=== PATIENT | male | born 1995 | race Caucasian/White ===

== ENCOUNTER 2018-09-12 23:51 | Emergency (ER) | payer OTHER ==
--- NOTE | 2018-09-12 23:56 | ER Report ---
History and Physical Time Seen By MD: 23:54 HPI/ROS CHIEF COMPLAINT: Left upper quadrant abdominal pain, no vomiting HISTORY OF PRESENT ILLNESS: 22-year-old male presents to the ER complaining of intermittent left upper quadrant abdominal pain. Patient admits to eating at [employer] several days ago. Patient notes vomiting tonight. He's had no fever or chills. He notes no diarrhea or constipation. He's had no dysuria or hematuria. Patient has no previous surgeries to his abdomen. REVIEW OF SYSTEMS: Respiratory: No cough, no dyspnea. Cardiovascular: No chest pain, no palpitations. Gastrointestinal: As above Musculoskeletal: No back pain. Allergies: Coded Allergies: No Known Drug Allergies (Unverified , 09/13/18) Home Meds Active Scripts Hydrocodone Bit/Acetaminophen (HYDROCODON-ACETAMINOPHEN 5-325) 1 Each Tablet, 1 EACH PO Q4-6H PRN for PAIN, #10 TAKE ONE TABLET BY MOUTH EVERY 4-6 HOURS NEEDED FOR PAIN Prov:ADILENE NUNN DO 09/13/18 Ondansetron Hcl (ZOFRAN) 4 Mg Tablet, 4 MG PO Q6H PRN for NAUSEA/VOMITING, #10 Prov:ADILENE NUNN DO 09/13/18 Reported Medications Hydralazine Hcl (HYDRALAZINE HCL) 25 Mg Tablet, 25 MG PO QDAY, TAB 09/13/18 Trazodone Hcl (TRAZODONE HCL) 50 Mg Tablet, 25 MG PO QHS 09/13/18 Sertraline Hcl (ZOLOFT) 100 Mg Tablet, 1 TAB PO QDAY, TAB 09/13/18 Reviewed Nurses Notes: Yes Old Medical Records Reviewed: Yes Constitutional Vital Sign - Last 24 Hours 09/12/18 09/12/18 09/13/18 09/13/18 23:56 23:58 00:21 00:51 Temp 99.8 Pulse 99 102 90 Resp 15 B/P (MAP) 118/79 118/79 (92) Pulse Ox 92 89 Intake and Output 09/12/18 09/12/18 09/13/18 15:00 23:00 07:00 Intake Total 1000 ml Balance 1000 ml Physical Exam General Appearance: The patient is alert, has no immediate need for airway protection and no current signs of toxicity. Fever 99.8 HEENT: Pupils equal and round no injection. No ric redness or exudate, mucous. Membranes are moist Respiratory: Chest is non tender, lungs are clear to auscultation. Cardiac: regular rate and rhythm Gastrointestinal: Abdomen is soft. Mild left upper quadrant tenderness, no rebound or guarding, no masses, bowel sounds normal. Musculoskeletal: Neck: Neck is supple and non tender. Extremities have full range of motion and are non tender. Skin: No rashes or lesions. DIFFERENTIAL DIAGNOSIS: After history and physical exam differential diagnosis was considered for abdominal pain including but not limited to appendicitis, cholecystitis, gastritis, food poisoning, gastroenteritis, viral syndrome and urinary tract infection. Medical Decision Making Data Points Result Diagram: 09/13/18 0005 09/13/18 0005 Laboratory Hematology Test 09/13/18 00:00 09/13/18 00:05 Urine Color Yellow Urine Clarity Clear Urine pH 5.0 pH (4.8-9.5) Urine Specific Harper 1.027 Urine Protein Negative mg/dL (NEGATIVE) Urine Glucose (UA) Negative mg/dL (NEGATIVE) Urine Ketones Negative mg/dL (NEGATIVE) Urine Blood Negative (NEGATIVE) Urine Nitrite Negative (NEGATIVE) Urine Bilirubin Negative (NEGATIVE) Urine Urobilinogen 2.0 mg/dL (0.2-1.9) Urine Leukocyte Esterase Negative (NEGATIVE) Urine RBC <1 /HPF (0-2/HPF) Urine WBC 1 /HPF (0-5/HPF) Urine Squamous Epithelial Cells None /LPF (</=FEW) Urine Bacteria Few /HPF (NONE-FEW) Urine Mucus None /HPF (NONE-FEW) Red Blood Count 5.61 M/uL (4.00-5.60) Mean Corpuscular Volume 90.6 fL (80.0-96.0) Mean Corpuscular Hemoglobin 31.2 pg (26.0-33.0) Mean Corpuscular Hemoglobin Concent 34.4 g/dL (32.0-36.0) Red Cell Distribution Width 13.3 % (11.5-14.5) Mean Platelet Volume 10.2 fL (7.2-11.1) Neutrophils (%) (Auto) 87.1 % (39.4-72.5) Lymphocytes (%) (Auto) 5.1 % (17.6-49.6) Monocytes (%) (Auto) 6.8 % (4.1-12.4) Eosinophils (%) (Auto) 0.8 % (0.4-6.7) Basophils (%) (Auto) 0.2 % (0.3-1.4) Nucleated RBC Relative Count (auto) 0.1 /100WBC Neutrophils # (Auto) 11.0 K/uL (2.0-7.4) Lymphocytes # (Auto) 0.6 K/uL (1.3-3.6) Monocytes # (Auto) 0.9 K/uL (0.3-1.0) Eosinophils # (Auto) 0.1 K/uL (0.0-0.5) Basophils # (Auto) 0.0 K/uL (0.0-0.1) Nucleated RBC Absolute Count (auto) 0.01 K/uL Sodium Level 137 mmol/L (137-145) Potassium Level 3.8 mmol/L (3.5-5.0) Chloride Level 99 mmol/L (98-107) Carbon Dioxide Level 28 mmol/L (22-30) Blood Urea Nitrogen 21 mg/dl (9-21) Creatinine 1.10 mg/dl (0.66-1.25) Glomerular Filtration Rate Calc > 60.0 Random Glucose 93 mg/dl (75-110) Calcium Level 9.6 mg/dl (8.4-10.2) Total Bilirubin 0.7 mg/dl (0.2-1.3) Aspartate Amino Transf (AST/SGOT) 42 U/L (0-35) Alanine Aminotransferase (ALT/SGPT) 74 U/L (0-56) Alkaline Phosphatase 61 U/L (0-126) Total Protein 7.8 g/dl (6.3-8.2) Albumin 4.6 g/dl (3.5-5.0) Amylase Level 70 U/L (0-110) Lipase 63 U/L (23-300) Chemistry Test 09/13/18 00:00 09/13/18 00:05 Urine Color Yellow Urine Clarity Clear Urine pH 5.0 pH (4.8-9.5) Urine Specific Harper 1.027 Urine Protein Negative mg/dL (NEGATIVE) Urine Glucose (UA) Negative mg/dL (NEGATIVE) Urine Ketones Negative mg/dL (NEGATIVE) Urine Blood Negative (NEGATIVE) Urine Nitrite Negative (NEGATIVE) Urine Bilirubin Negative (NEGATIVE) Urine Urobilinogen 2.0 mg/dL (0.2-1.9) Urine Leukocyte Esterase Negative (NEGATIVE) Urine RBC <1 /HPF (0-2/HPF) Urine WBC 1 /HPF (0-5/HPF) Urine Squamous Epithelial Cells None /LPF (</=FEW) Urine Bacteria Few /HPF (NONE-FEW) Urine Mucus None /HPF (NONE-FEW) White Blood Count 12.6 k/uL (4.5-11.0) Red Blood Count 5.61 M/uL (4.00-5.60) Hemoglobin 17.5 g/dL (14.0-18.0) Hematocrit 50.8 % (42.0-52.0) Mean Corpuscular Volume 90.6 fL (80.0-96.0) Mean Corpuscular Hemoglobin 31.2 pg (26.0-33.0) Mean Corpuscular Hemoglobin Concent 34.4 g/dL (32.0-36.0) Red Cell Distribution Width 13.3 % (11.5-14.5) Platelet Count 204 K/uL (150-450) Mean Platelet Volume 10.2 fL (7.2-11.1) Neutrophils (%) (Auto) 87.1 % (39.4-72.5) Lymphocytes (%) (Auto) 5.1 % (17.6-49.6) Monocytes (%) (Auto) 6.8 % (4.1-12.4) Eosinophils (%) (Auto) 0.8 % (0.4-6.7) Basophils (%) (Auto) 0.2 % (0.3-1.4) Nucleated RBC Relative Count (auto) 0.1 /100WBC Neutrophils # (Auto) 11.0 K/uL (2.0-7.4) Lymphocytes # (Auto) 0.6 K/uL (1.3-3.6) Monocytes # (Auto) 0.9 K/uL (0.3-1.0) Eosinophils # (Auto) 0.1 K/uL (0.0-0.5) Basophils # (Auto) 0.0 K/uL (0.0-0.1) Nucleated RBC Absolute Count (auto) 0.01 K/uL Glomerular Filtration Rate Calc > 60.0 Calcium Level 9.6 mg/dl (8.4-10.2) Total Bilirubin 0.7 mg/dl (0.2-1.3) Aspartate Amino Transf (AST/SGOT) 42 U/L (0-35) Alanine Aminotransferase (ALT/SGPT) 74 U/L (0-56) Alkaline Phosphatase 61 U/L (0-126) Total Protein 7.8 g/dl (6.3-8.2) Albumin 4.6 g/dl (3.5-5.0) Amylase Level 70 U/L (0-110) Lipase 63 U/L (23-300) Urinalysis Test 09/13/18 00:00 Urine Color Yellow Urine Clarity Clear Urine pH 5.0 pH (4.8-9.5) Urine Specific Harper 1.027 Urine Protein Negative mg/dL (NEGATIVE) Urine Glucose (UA) Negative mg/dL (NEGATIVE) Urine Ketones Negative mg/dL (NEGATIVE) Urine Blood Negative (NEGATIVE) Urine Nitrite Negative (NEGATIVE) Urine Bilirubin Negative (NEGATIVE) Urine Urobilinogen 2.0 mg/dL (0.2-1.9) Urine Leukocyte Esterase Negative (NEGATIVE) Urine RBC <1 /HPF (0-2/HPF) Urine WBC 1 /HPF (0-5/HPF) Urine Squamous Epithelial Cells None /LPF (</=FEW) Urine Bacteria Few /HPF (NONE-FEW) Urine Mucus None /HPF (NONE-FEW) ED Course/Re-evaluation Clinical Indication for ER IV: Hydration, IV Access ED Course Patient was admitted to an examination room. H&P was done. The differential diagnoses was considered. On clinical examination. Patient has benign nonsurgical abdomen. Patient has low-grade fever. Patient recently ate at [employer]. I suspect he may be suffering food poisoning. His vital signs are stable. His white blood cell count mildly elevated to 12,600. His LFTs are mildly elevated. His lipase and other laboratory studies are unremarkable. His urinalysis shows concentration of urine. Patient's treated with IV fluid hydration, Zofran 4 mg and fentanyl 50 g he feels much improved. He'll be discharged home on a clear liquid diet for 48 hours and then advance to [place] diet. Patient's given a limited supply of hydrocodone and Zofran. Patient advised to follow-up with primary care if unimproved in 3-5 days.. [facility] in [place]. Decision to Disposition Date: Sep 13, 2018 Decision to Disposition Time: 00:52 Depart Departure Latest Vital Signs Vital Signs Date Time Temp Pulse Resp B/P (MAP) Pulse Ox O2 Delivery O2 Flow Rate FiO2 09/13/18 00:51 90 89 09/12/18 23:58 118/79 (92) 09/12/18 23:56 99.8 15 Impression: Primary Impression: Abdominal pain Additional Impression: Food poisoning Condition: Improved Disposition: HOME OR SELF-CARE Referrals: JESSICA KHOURY MD, FARRUKH MD New Scripts Hydrocodone Bit/Acetaminophen (HYDROCODON-ACETAMINOPHEN 5-325) 1 Each Tablet 1 EACH PO Q4-6H PRN for PAIN, #10 TAKE ONE TABLET BY MOUTH EVERY 4-6 HOURS NEEDED FOR PAIN Prov: ADILENE NUNN DO 09/13/18 Ondansetron Hcl (ZOFRAN) 4 Mg Tablet 4 MG PO Q6H PRN for NAUSEA/VOMITING, #10 Prov: ADILENE NUNN DO 09/13/18 Patient Instructions: Clear Liquid Diet (ED), Food Poisoning (ED) Additional Instructions: Follow clear liquid diet for 24-48 hours, advance to [place] diet, bananas, rice, applesauce and toast for 24 hours Follow-up with primary care if unimproved in 3-5 days Problem Qualifiers Primary Impression: Abdominal pain Abdominal location: left upper quadrant Qualified Codes: R10.12 - Left upper quadrant pain Additional Impression: Food poisoning Encounter type: initial encounter Injury intent: accidental or unintentional Qualified Codes: T62.91XA - Toxic effect of unspecified nox ious substance eaten as food, accidental (unintentional), initial encounter ADILENE NUNN DO Sep 12, 2018 23:55
[2018-09-12 23:58] VITALS: BP 118/79
[2018-09-13] MEDS ORDERED: SERT-173 PO (00:05)
[2018-09-13] MEDS ORDERED: TRAZ50TA34 PO (00:05)
[2018-09-13] MEDS ORDERED: HYDR25TA66 PO (00:06)
[2018-09-13] MEDS ORDERED: NS(*) 0.9% 1000 ML BAG 1,000 ML IV ONE (00:20)
[2018-09-13] MEDS ORDERED: ONDANSETRON 4 MG/2 ML VIAL IVP ONE (00:20)
[2018-09-13] MEDS ORDERED: fentaNYL CITR 100 MCG/2 ML AMP IVP ONE (00:20)
[2018-09-13 00:35] LABS: PLATELET COUNT, AUTOMATED 204 K/uL (150-450)
[2018-09-13] MEDS ORDERED: ACET/HYDROC 5/325MG TH ER ONLY 2 TAB/BOTTLE PO ONE (00:50)
[2018-09-13] MEDS ORDERED: ONDANSETRON 4 MG ODT TH SL ONE (00:50)
[2018-09-13] MEDS ORDERED: LOR5/325 PO (00:55)
[2018-09-13] MEDS ORDERED: ONDA4TAB97 PO (00:55)
== END 2018-09-13 01:17 | disposition home or self-care (01) ==
LOC: ER 09-13 00:53
DX: T62.91XA Toxic effect of unspecified noxious substance eaten as food, accidental (unintentional), initial encounter (principal); R10.12 Left upper quadrant pain
CPT/HCPCS: 81001; 82150; 83690; 85025; 96361; 96374; 96375; 99284; J2405; J3010; J7030; S0119; 82040; 82247; 82310; 82374; 82435; 82565; 82947; 84075; 84132; 84155; 84295; 84450; 84460; 84520